=== PATIENT | female | born 1990 | race Caucasian/White ===

== ENCOUNTER 2024-06-19 03:00 | Emergency (ER) | payer BC ==
[~2024-06-19] VITALS: Ht 157.5 cm; Wt 52.3 kg
[2024-06-19 03:01] VITALS: TEMP 98
[2024-06-19 03:32] VITALS: BP 134/86; PULSE 121; RESP 16; O2SAT 100
== END 2024-06-19 03:37 | disposition home or self-care (01) ==
LOC: ER 03:01
DX: Z04.1 Encounter for examination and observation following transport accident (principal); R07.89 Other chest pain; V89.2XXA Person injured in unspecified motor-vehicle accident, traffic, initial encounter; Y93.89 Activity, other specified; Y92.410 Unspecified street and highway as the place of occurrence of the external cause; Y99.8 Other external cause status
CPT/HCPCS: 93005; 99283